=== PATIENT | male | born 1990 | race African-American/Black ===

== ENCOUNTER 2018-10-09 10:43 | Emergency (ER) | payer SELFPAY ==
[2018-10-09 10:51] VITALS: BP 132/82
[2018-10-09] MEDS ORDERED: METHYLPREDNISOLONE INJ 125 MG/2 ML SDV IV ONE (10:52)
[2018-10-09] MEDS ORDERED: FAMOTIDINE INJ/PF 20 MG/2 ML SDV IV ONE (10:52)
[2018-10-09] MEDS ORDERED: DIPHENHYDRAMINE HCL 50 MG/ML VIAL IV ONE (10:52)
--- NOTE | 2018-10-09 10:54 | ER Document Report ---
ED Allergic Reaction - General Chief Complaint: Allergic Reaction Stated Complaint: WASP STING Time Seen by Provider: 10/09/18 10:48 Mode of Arrival: Ambulatory Information source: Patient Notes: Patient is a 28-year-old male with allergies to wasps presenting to the emergency department with chief complaint of wasp sting to his left upper back. He reports this occurred approximately 30 minutes prior to arrival. He reports that he usually has an EpiPen with him but did not have one today. He does report feeling a sensation of his throat that feels like some swelling but he is speaking in full and complete sentences and swallowing without difficulty. He does not have any hives at this time. - Related Data Allergies/Adverse Reactions: seafood Allergy (Uncoded 10/09/18 10:47) wasp Allergy (Uncoded 10/09/18 10:47) Past Medical History - General Information source: Patient - Social History Smoking Status: Never Smoker Chew tobacco use (# tins/day): No Frequency of alcohol use: None Drug Abuse: None Family History: Reviewed & Not Pertinent Patient has suicidal ideation: No Patient has homicidal ideation: No Pulmonary Medical History: Reports: Hx Asthma Renal/ Medical History: Denies: Hx Peritoneal Dialysis Past Surgical History: Reports: Hx Adenoidectomy, Hx Tonsillectomy - Immunizations Hx Diphtheria, Pertussis, Tetanus Vaccination: Yes Review of Systems - Review of Systems Constitutional: Other - Mild discomfort when swallowing EENT: No symptoms reported Cardiovascular: No symptoms reported Respiratory: No symptoms reported Gastrointestinal: No symptoms reported Genitourinary: No symptoms reported Male Genitourinary: No symptoms reported Musculoskeletal: No symptoms reported Skin: Other - Pruritus Hematologic/Lymphatic: No symptoms reported Neurological/Psychological: No symptoms reported Physical Exam - Vital signs Vitals: Pulse Resp BP Pulse Ox 86 20 132/82 H 98 10/09/18 10:50 10/09/18 10:50 10/09/18 10:50 10/09/18 10:50 - Notes Notes: PHYSICAL EXAMINATION: GENERAL: Well-appearing, well-nourished and in no acute distress. HEAD: Atraumatic, normocephalic. EYES: Pupils equal round and reactive to light, extraocular movements intact, sclera anicteric, conjunctiva are normal. ENT: Nares patent, oropharynx clear without exudates. Moist mucous membranes. No tongue swelling noted, no visible soft palate swelling noted. NECK: Normal range of motion, supple without lymphadenopathy LUNGS: Breath sounds clear to auscultation bilaterally and equal. No wheezes rales or rhonchi. HEART: Regular rate and rhythm without murmurs ABDOMEN: Soft, nontender, nondistended abdomen. No guarding, no rebound. No masses appreciated. Musculoskeletal: Normal range of motion, no pitting or edema. No cyanosis. NEUROLOGICAL: Cranial nerves grossly intact. Normal speech, normal gait. Normal sensory, motor exams PSYCH: Normal mood, normal affect. SKIN: Warm, Dry, normal turgor, no rashes, hives or lesions noted. Course - Re-evaluation Re-evalutation: Patient speaking in full and complete sentences, able to swallow without difficulty. Will proceed with IV Solu-Medrol, Pepcid and Benadryl. Will hold off on epi at this time but monitor closely. 10/09/18 12:07 Patient continues to have mild pharyngeal symptoms and a feeling that his throat is slightly swollen. He is speaking in full complete sentences and continues to swallow without difficulty. Patient states he has to leave due to having to be somewhere at 1230. I am is not having him sign out AMA as I feel that he should stay longer for continued monitoring. Patient and family member at bedside understand the need to stay for longer monitoring and they do understand the risks and benefits of leaving to include worsening of his symptoms and airway compromise. - Vital Signs Vital signs: Temp Pulse Resp BP Pulse Ox 86 20 132/82 H 98 10/09/18 10:50 10/09/18 10:50 10/09/18 10:50 10/09/18 10:50 Discharge - Discharge Clinical Impression: Allergic reaction, Wasp sting Condition: Good Disposition: AGAINST MEDICAL ADVICE Additional Instructions: You were treated in the emergency department today for an allergic reaction to a wasp sting. You stated that you have anaphylaxis to this and did not have your EpiPen with you. We monitored you in the emergency department after given you Benadryl, Pepcid and Solu-Medrol. I would like to monitor you for longer however you have stated that you have to leave. You are leaving AGAINST MEDICAL ADVICE. Please return if you have any worsening symptoms to include difficulty talking, difficulty swallowing, worsening hives or swelling in your face. We are happy to reevaluate you at any time in your more than welcome to come back. Acute Allergic Reaction Your symptoms are due to an allergic reaction. Allergy can cause hives, swelling of the hands, feet, and face, hoarseness, and difficulty swallowing or breathing. It may be due to exposure to medication, animal dander, foods, infection, or insect bites. Medication is a common cause, even when prior use of this same medication caused no problems. Acute treatment may include adrenalin and antihistamines. Usually, the specific allergic agent can't be identified unless repeated episodes occur. Home treatment includes the following: (1) Stop any suspicious medications. This will be discussed with you. (2) Oral antihistamines for the next four to five days. Example, diphenhydramine (Benadryl) every four hours. (3) You may also use cimetidine (Tagamet), ranitidine (Zantac), or famotidine (Pepcid) every four hours if diphenhydramine is not controlling itching and hives. (4) Avoid aspirin until the hives completely disappear. (5) Avoid hot bahs or showers until the hives are completely gone. Call the doctor if faintness, difficulty swallowing, tightness in the chest, or wheezing occurs. Prescriptions: Epinephrine [Epipen 2-Darrel] 0.3 mg IM ONCE PRN #1 packet PRN Reason:
== END 2018-10-09 12:13 | disposition left against medical advice (07) ==
LOC: ER 10:43
DX: T63.461A Toxic effect of venom of wasps, accidental (unintentional), initial encounter (principal); R09.89 Other specified symptoms and signs involving the circulatory and respiratory systems; L29.9 Pruritus, unspecified; Z91.038 Other insect allergy status; Z91.013 Allergy to seafood
CPT/HCPCS: 99283; 96374; 96375; J1200; J2930; S0028

== ENCOUNTER 2019-10-21 10:51 | Emergency (ER) | payer SELFPAY ==
[2019-10-21 11:06] VITALS: BP 150/85
--- NOTE | 2019-10-21 11:50 | ER Document Report ---
HPI - HPI Time Seen by Provider: 10/21/19 11:41 Context: Patient is a 29-year-old male who presents the emergency department with a chief complaint of right upper back pain. States the pain is underneath his right scapular area. States that he was at work and last week he felt a pain in his back. States that he thought it would get better, but it did not. - ROS Systems Reviewed and Negative: Yes All other systems reviewed and negative - CONSTITUTIONAL Constitutional: DENIES: Fever, Chills - CARDIOVASCULAR Cardiovascular: DENIES: Chest pain - RESPIRATORY Respiratory: DENIES: Trouble Breathing, Coughing - GASTROINTESTINAL Gastrointestinal: DENIES: Abdominal Pain, Nausea, Patient vomiting - MUSCULOSKELETAL Musculoskeletal: REPORTS: Back Pain - See HPI.. DENIES: Extremity pain, Swelling - DERM Skin Color: Normal Skin Problems: None Past Medical History - General Information source: Patient - Social History Smoking Status: Unknown if Ever Smoked Family History: Reviewed & Not Pertinent Pulmonary Medical History: Reports: Hx Asthma Renal/ Medical History: Denies: Hx Peritoneal Dialysis Past Surgical History: Reports: Hx Adenoidectomy, Hx Tonsillectomy - Immunizations Hx Diphtheria, Pertussis, Tetanus Vaccination: Yes Vertical Provider Document - CONSTITUTIONAL Agree With Documented VS: Yes Exam Limitations: No Limitations General Appearance: No Apparent Distress - HEENT HEENT: Atraumatic, Normocephalic, PERRLA - NECK Neck: Normal Inspection, Supple - RESPIRATORY Respiratory: Breath Sounds Normal, No Respiratory Distress - CARDIOVASCULAR Cardiovascular: Regular Rate, Regular Rhythm Pulses: Normal: Radial - MUSCULOSKELETAL/EXTREMETIES Musculoskeletal/Extremeties: FROM, Tender - Right upper back inferior to scapula, No Edema. negative: Eccymosis - NEURO Level of Consciousness: Awake, Alert, Appropriate Motor/Sensory: No Motor Deficit, No Sensory Deficit - DERM Integumentary: Warm, Dry, No Rash Course - Re-evaluation Re-evalutation: 10/21/19 Exam is consistent with a back muscle strain. Able to move his right arm with no difficulty. Normal range of motion. Capillary refill less than 3 seconds. Radial pulse 2+. No vascular compromise noted. I have a low suspicion for pneumonia, as there is tenderness upon palpation to right back. We will start the patient on Robaxin. Follow-up precautions were given. Verbal discharge instructions were given to the patient. They verbalized understanding. They are stable for discharge. - Vital Signs Vital signs: Temp Pulse Resp BP Pulse Ox 98.5 F 87 18 150/85 H 100 10/21/19 11:05 10/21/19 11:05 10/21/19 11:05 10/21/19 11:05 10/21/19 11:05 Discharge - Discharge Clinical Impression: Upper back pain on right side Condition: Stable Disposition: HOME, SELF-CARE Instructions: Muscle Strain (OM) Additional Instructions: You were seen today in the emergency department for back pain. Take ibuprofen 600 mg and acetaminophen 1000 mg every 6 hours as needed for your pain. Take Robaxin at night only if you absolutely need it. This is a muscle relaxer. It may make you sleepy. Do not operate heavy machinery when you take this medication. Follow-up with your primary care provider in regards to this visit. Prescriptions: Methocarbamol [Robaxin 500 mg Tablet] 1,000 mg PO BID PRN #12 tablet PRN Reason: Forms: Return to Work Referrals: [facility] [Provider Group] - Follow up as needed
== END 2019-10-21 11:57 | disposition home or self-care (01) ==
LOC: ER 10:51
DX: M54.6 Pain in thoracic spine (principal)
CPT/HCPCS: 99283